=== PATIENT | male | born 1985 | race Caucasian/White ===

== ENCOUNTER 2021-10-07 03:39 | Emergency (ER) | payer OTHER ==
[2021-10-07 04:06] LABS: HEMOGLOBIN 15.4 gm/dl (14.0-17.5); RED BLOOD COUNT 4.94 M/UL (4.20-5.50); WHITE BLOOD COUNT 16.9 K/UL (4.5-11.0)
[2021-10-07 04:31] LABS: BUN/CREATININE RATIO 17 (0-10)
== END 2021-10-07 10:15 | disposition other institution (70) ==
LOC: ER1 03:39
PROVIDERS: Emergency Medicine
DX: S32.402A Unspecified fracture of left acetabulum, initial encounter for closed fracture (principal); S72.001A Fracture of unspecified part of neck of right femur, initial encounter for closed fracture; V49.9XXA Car occupant (driver) (passenger) injured in unspecified traffic accident, initial encounter; F17.200 Nicotine dependence, unspecified, uncomplicated
CPT/HCPCS: 27222; 36415; 70450; 71045; 71260; 72125; 72170; 73552; 80053; 83605; 85025; 85610; 85730; 86850; 86900; 86901; 94760; 96374; 96376; 99152; 99283; G0480; J1170; J2270; J2405; J2704; Q9967